=== PATIENT | male | born 1945 | race Caucasian/White ===

== ENCOUNTER 2023-12-13 09:49 | Inpatient (IN) | payer MEDICAID, SELFPAY ==
[2023-12-13] VITALS (7 sets, daily range): BP systolic 104–148; BP diastolic 41–76; PULSE 66–120; RESP 15–18; TEMP 36.5–37.3; O2SAT 84–100; BMI 30.9; BMI 33.3
--- NOTE | 2023-12-13 10:08 | EKG12_ITS ---
Test Reason : Blood Pressure : / mmHG Vent. Rate : 073 BPM Atrial Rate : 073 BPM P-R Int : 190 ms QRS Dur : 138 ms QT Int : 378 ms P-R-T Axes : 061 025 036 degrees QTc Int : 416 ms Sinus rhythm with Premature atrial complexes Right bundle branch block Abnormal ECG Confirmed by ABNER GROVER, KACEY ([id number]), design editor CANDIS CHEN ([id number]) on 12/14/2023 12:58:17 PM Referred By: Confirmed By:KACEY LEVINE MD
--- NOTE | 2023-12-13 10:12 | ED.RN ---
NO OLD EKGS
[2023-12-13 10:25] LABS: Absolute Lymphocyte Count 1.63 X10^3/uL (0.83-4.51); Absolute Neutrophil Count 13.9 X10^3/uL (2.0-7.7); Basophil# 0.13 X10^3/uL; Basophil% 0.7 % (0-1); Differential Indicated SCAN CRITERIA MET; Eosinophil# 0.05 X10^3/uL; Eosinophils% 0.3 % (0-5); Hematocrit 41.9 % (40-54); Hemoglobin 13.1 g/dL (13.0-16.5); Lymphocyte # 1.63 X10^3/ul (0.83-4.51); Lymphocyte % 8.8 % (19-41); Mean Corp Hgb Conc 31.3 g/dL (32-36); Mean Corpuscular Hgb 29.1 pg (27.0-32.0); Mean Corpuscular Volume 93.1 fL (80-94); Mean Platelet Vol. 10.1 fl (6.2-12.0); Monocyte# 2.22 X10^3/uL; Monocyte% 11.9 % (0-10); NRBC Flagged by Analyzer 0 % (0-5); Neutrophil # 13.93 X10^3/uL (2.7-7.7); POSITIVE DIFFERENTIAL YES; Platelet Count 401 K/mm3 (150-450); RBC Distribution Width CV 13.9 % (11.6-14.6); RBC Distribution Width SD 47.7 fl (35.1-43.9); White Blood Count 18.6 K/mm3 (4.4-11.0)
--- NOTE | 2023-12-13 10:25 | RAD_ITS ---
STUDY: X-RAY CHEST REASON FOR EXAM: Male, 78 years old. AMS TECHNIQUE: Single AP portable view of the chest. COMPARISON: None. FINDINGS: EKG electrodes are seen. Increased markings at the left lung base suggesting a left basilar infiltration and/or atelectasis. There is no demonstrated pleural abnormality. Normal size heart. Normal mediastinum and vane. Normal visualized pulmonary arteries. There is atherosclerotic calcification of the aortic arch with tortuosity. There are diffuse degenerative changes of the visualized thoracic spine. Normal visualized ribs, clavicles, and shoulders. There is no demonstrated abnormality of the visualized soft tissue structures of the upper abdomen. RAD/Chest 1 View (Portable) IMPRESSION: Left basilar infiltration and/or atelectasis. Electronically Signed: Mateo Pink MD at 10:39 EDT ,
--- NOTE | 2023-12-13 10:29 | EX.ED.DYSGE1 ---
HPI History of Present Illness Chief Complaint: Alt LOC Informant: patient, EMS and SNF Narrative Narrative: Patient is a 78-year-old male with extensive past medical history including schizophrenia, hypertension, chronic pain (on 30 mg morphine sulfate twice daily), insulin-dependent diabetes mellitus (on insulin glargine 20 units twice daily), dysphagia, prior stroke COPD, diastolic heart failure, chronic anticoagulation on Eliquis and anxiety presenting for altered mental status and decreased responsiveness. Patient was at [facility] he was supposed to have cataract surgery today. He states he not had anything to eat and 24 hours. He is a resident of [facility]. While he was there he had an episode of decreased responsiveness but no loss of consciousness. No report of any fall or trauma. EMS initially checked his blood sugar and it was 50. Was given oral glucose on recheck was 74. Patient denies any specific complaints and states he does not feel good and is hungry. ER nurse spoke with nursing staff at [facility]. They state that he received his morning 1 mg Ativan as well as 30 mg morphine sulfate as well as his a.m. Lantus. He refuses other medications because he could not have it with applesauce. They note that he has been more irritable over the past few days but no other acute complaints. [facility] Medical History (Updated 12/13/23 @ 17:[address] Anne Ellsworth, ) Dysphagia Schizophrenia HTN (hypertension) CHF (congestive heart failure) Hyperlipidemia Anemia Hypothyroidism Muscle weakness (generalized) Type 2 diabetes mellitus COPD (chronic obstructive pulmonary disease) Home Medications ?Medication ?Instructions ?Recorded ?Last Taken ?Type acetaminophen 325 mg tablet 650 mg PO Q8H PRN pain 12/13/23 Unknown History acetic acid 0.25 % irrigation 30 ml irrigation QPM 12/13/23 Unknown History solution apixaban 5 mg tablet (Eliquis) 5 mg PO BID blood thinner 12/13/23 Unknown History atorvastatin 20 mg tablet 20 mg PO QHS cad 12/13/23 Unknown History bisacodyl 10 mg rectal suppository 10 mg [place] DAILY PRN constipation 12/13/23 Unknown History (Dulcolax (bisacodyl)) bisacodyl 5 mg tablet,delayed 5 mg PO DAILY PRN constipation 12/13/23 Unknown History release (Dulcolax (bisacodyl)) cholecalciferol (vitamin D3) 125 125 mcg PO MO suppliment 12/13/23 Unknown History mcg (5,000 unit) capsule cyanocobalamin (vitamin B-12) 500 500 mcg PO QPM suppliment 12/13/23 Unknown History mcg tablet (B-12 DOTS) divalproex 500 mg tablet,delayed 500 mg PO TID scitzophrenia 12/13/23 Unknown History release duloxetine 60 mg capsule,delayed 60 mg PO DAILY depression 12/13/23 Unknown History release folic acid 1 mg tablet 1 mg PO DAILY suppliment 12/13/23 Unknown History furosemide 20 mg tablet 20 mg PO DAILY diuretic 12/13/23 Unknown History furosemide 40 mg tablet 40 mg PO DAILY diuretic 12/13/23 Unknown History gabapentin 600 mg tablet 600 mg PO TID nerve pain 12/13/23 Unknown History glucagon 1 mg solution for 1 mg subcut DAILY 12/13/23 Unknown History injection (GlucaGen HypoKit) haloperidol 2 mg tablet 2 mg PO BID scitzophrenia 12/13/23 Unknown History insulin glargine 100 unit/mL (3 20 unit subcut BID diabetes 12/13/23 Unknown History mL) subcutaneous pen (Basaglar KwikPen U-100 Insulin) insulin lispro 100 unit/mL 1 sliding scale dose subcut TID 12/13/23 Unknown History subcutaneous pen (Humalog KwikPen diabetes (U-100) Insulin) ketorolac 0.5 % eye drops 1 drp EACH EYE 4X/DAY RIGHT EYE 12/13/23 Unknown History SURGERY levothyroxine 50 mcg tablet 50 mcg PO DAILY thyroid 12/13/23 Unknown History lidocaine HCl 4 % topical cream 1 applic topical DAILY right knee 12/13/23 Unknown History (Aspercreme (lidocaine HCl)) pain lisinopril 5 mg tablet 5 mg PO DAILY bp 12/13/23 Unknown History loperamide 2 mg tablet 4 mg PO DAILY PRN loose stool 12/13/23 Unknown History lorazepam 0.5 mg tablet 0.5 mg PO 1700 anxiety 12/13/23 Unknown History lorazepam 1 mg tablet 1 mg PO TID anxiety 12/13/23 Unknown History magnesium hydroxide 400 mg/5 mL 30 ml PO DAILY PRN constipation 12/13/23 Unknown History oral suspension (Milk of Magnesia) melatonin 5 mg tablet 5 mg PO QHS sleep 12/13/23 Unknown History morphine 30 mg tablet,extended 30 mg PO BID pain 12/13/23 Unknown History release ofloxacin 0.3 % eye drops 1 drp ophthalmic (eye) 4X/DAY 12/13/23 Unknown History RIGHT EYE SURGERY polyethylene glycol 3350 17 17 g PO DAILY constipation 12/13/23 Unknown History gram/dose oral powder (ClearLax) potassium chloride 20 mEq 20 meq PO DAILY suppliment 12/13/23 Unknown History tablet,extended release sennosides 8.6 mg-docusate sodium 1 tab-cap PO BID 12/13/23 Unknown History 50 mg capsule (Senna Plus) venlafaxine 150 mg 150 mg PO DAILY depression 12/13/23 Unknown History capsule,extended release 24 hr venlafaxine 37.5 mg 37.5 mg PO DAILY depression 12/13/23 Unknown History capsule,extended release 24 hr (Effexor XR) vit M-smpnjetm-ukihrfvrkki lotion 1 applic topical BID PRN dry skin 12/13/23 Unknown History (Cetaphil Moisturizing lotion) Allergy/AdvReac Type Severity Reaction Status Date / Time No Known Allergies Allergy Verified 12/13/23 09:51 Social History (Updated 12/13/23 @ 13:04 by Teresa Hall) housing: prison Smoking Status: Unknown if ever smoked ROS ROS ED Review of Systems ROS Unobtainable: due to mental status Constitutional Constitutional ED: Denies fever(s) Cardiovascular Cardiovascular: Denies chest pain Respiratory/Chest Respiratory/Chest: Denies cough Gastrointestinal Gastrointestinal: Denies abdominal pain or vomiting Neurologic Neurologic: Reports weakness Hematologic/Lymphatic Hematologic/Lymphatic: Reports easy bleeding, easy bruising and other Details: On Eliquis EXAM Physical Exam Const Vital Signs: 12/13/23 09:51 12/13/23 09:51 12/13/23 11:49 Temperature 97.8 F 97.8 F Temperature Source Oral Temporal Pulse Rate 88 120 H Respiratory Rate 16 18 Blood Pressure 132/64 H 132/76 H Blood Pressure Mean 86 94 Pulse Ox 84 94 100 Oxygen Delivery Method Room Air Nasal Cannula Nasal Cannula Oxygen Flow Rate (L/min) 4 2 12/13/23 11:54 Temperature 97.7 F L Temperature Source Temporal Pulse Rate 73 Respiratory Rate 16 Blood Pressure 104/48 L Blood Pressure Mean 66 Pulse Ox 99 Oxygen Delivery Method Nasal Cannula Oxygen Flow Rate (L/min) 4 Positive well nourished and well developed General Appearance ED: well developed and NAD HEENT Reports dry mucous membranes Mouth ED: Yes dry mucous membranes Mouth: dry mucous membranes Eyes PERRL and EOMs intact bilaterally Neck no lymphadenopathy and supple Neck Narrative: No meningeal signs Chest Wall inspection of chest normal Resp normal respiratory effort and clear to auscultation bilaterally Cardio regular rate, regular rhythm and no murmurs GI normal to inspection, nondistended, normoactive bowel sounds and non-tender Extremity normal to inspection Neuro Neuro Narrative: Somnolent, answers questions with brief one-word responses or head nods Sensorium / Orientation: alert Motor Exam: general weakness Psych mental status grossly normal Skin no rashes or lesions noted and no wounds MDM MDM MDM Narrative Medical decision making narrative: Patient is evaluated for decreased responsiveness. Was hypoxic upon arrival and placed on 4 L of nasal cannula. Was hypoglycemic. Is able to drink so was given orange juice. Workup for cause of altered mental status and hypoglycemia including infection, ACS and electrolyte abnormality is performed. Patient is given IV fluids in the emergency room. Blood sugar is coming up slightly so hold off on dextrose infusion at this time. Patient has a significantly elevated white blood cell count of 18.6 with signs of a left shift. Will add on blood cultures and lactate as well. Source appears to be urine. Patient started IV Rocephin. Chest x-ray viewed by myself as well as radiology shows a questionable left basilar infiltrate and/or atelectasis however I suspect that is more atelectasis. Case is discussed with admitting physician, Dr. Bejarano. He is admitted to hospital for further treatment. Lab Data Labs: Laboratory Results - last 24 hr 12/13/23 12/13/23 12/13/23 09:55 10:10 10:14 WBC 18.6 H RBC 4.50 L Hgb 13.1 Hct 41.9 MCV 93.1 MCH 29.1 MCHC 31.3 L RDW Std Deviation 47.7 H RDW Coeff of Eric 13.9 Plt Count 401 MPV 10.1 Immature Gran % (Auto) 3.300 H Neut % (Auto) 75.0 H Lymph % (Auto) 8.8 L [place] % (Auto) 11.9 H Eos % (Auto) 0.3 Baso % (Auto) 0.7 Absolute Neuts (auto) 13.9 H Absolute Lymphs (auto) 1.63 Nucleated RBC % 0 Differential Comment Diff Path Review May foll Sodium 135 L Potassium 3.9 Chloride 97 L Carbon Dioxide 31.0 Anion Gap 7 BUN 16 Creatinine 1.15 Estim Creat Clear Calc 65.89 Est GFR (MDRD) Af Amer 79 Est GFR (MDRD) Non-Af 65 BUN/Creatinine Ratio 13.9 Glucose 67 L Lactic Acid Calcium 9.4 Total Bilirubin 0.40 AST 82 H ALT 18 Alkaline Phosphatase 73 Troponin I High Sens 13 B-Natriuretic Peptide 55.1 Total Protein 7.6 Albumin 2.5 L Globulin 5.1 H Albumin/Globulin Ratio 0.5 L Urine Color Urine Clarity Urine pH Ur Specific [place] Urine Protein Urine Glucose (UA) Urine Ketones Urine Occult Blood Urine Nitrite Urine Bilirubin Urine Urobilinogen Ur Leukocyte Esterase Urine RBC Urine WBC Ur Squamous Epith Cells Amorphous Sediment Urine Bacteria Urine Mucus Valproic Acid 57 POC Glucose 48 L 64 L 12/13/23 12/13/23 12/13/23 10:27 10:40 11:33 WBC RBC Hgb Hct MCV MCH MCHC RDW Std Deviation RDW Coeff of Eric Plt Count MPV Immature Gran % (Auto) Neut % (Auto) Lymph % (Auto) [place] % (Auto) Eos % (Auto) Baso % (Auto) Absolute Neuts (auto) Absolute Lymphs (auto) Nucleated RBC % Differential Comment Diff Path Review Sodium Potassium Chloride Carbon Dioxide Anion Gap BUN Creatinine Estim Creat Clear Calc Est GFR (MDRD) Af Amer Est GFR (MDRD) Non-Af BUN/Creatinine Ratio Glucose Lactic Acid 0.9 Calcium Total Bilirubin AST ALT Alkaline Phosphatase Troponin I High Sens B-Natriuretic Peptide Total Protein Albumin Globulin Albumin/Globulin Ratio Urine Color Yellow Urine Clarity Cloudy Urine pH 6.0 Ur Specific [place] 1.015 Urine Protein 100 H Urine Glucose (UA) Normal Urine Ketones 15 H Urine Occult Blood 50 H Urine Nitrite Positive H Urine Bilirubin Negative Urine Urobilinogen 4 H Ur Leukocyte Esterase 500 H Urine RBC 0-5 SEEN Urine WBC 50-100 SEEN Ur Squamous Epith Cells 0-5 SEEN Amorphous Sediment 3+ Urine Bacteria 2+ Urine Mucus 0 SEEN Valproic Acid POC Glucose 139 H 12/13/23 11:57 WBC RBC Hgb Hct MCV MCH MCHC RDW Std Deviation RDW Coeff of Eric Plt Count MPV Immature Gran % (Auto) Neut % (Auto) Lymph % (Auto) [place] % (Auto) Eos % (Auto) Baso % (Auto) Absolute Neuts (auto) Absolute Lymphs (auto) Nucleated RBC % Differential Comment Diff Path Review Sodium Potassium Chloride Carbon Dioxide Anion Gap BUN Creatinine Estim Creat Clear Calc Est GFR (MDRD) Af Amer Est GFR (MDRD) Non-Af BUN/Creatinine Ratio Glucose Lactic Acid Calcium Total Bilirubin AST ALT Alkaline Phosphatase Troponin I High Sens B-Natriuretic Peptide Total Protein Albumin Globulin Albumin/Globulin Ratio Urine Color Urine Clarity Urine pH Ur Specific [place] Urine Protein Urine Glucose (UA) Urine Ketones Urine Occult Blood Urine Nitrite Urine Bilirubin Urine Urobilinogen Ur Leukocyte Esterase Urine RBC Urine WBC Ur Squamous Epith Cells Amorphous Sediment Urine Bacteria Urine Mucus Valproic Acid POC Glucose 182 H Radiography Chest X-Ray - ED: 1 View, Read by ED Physician, Read by Radiologist and - (Left basilar infiltrate versus atelectasis) Diagnostic Testing: Clinical Impression(s) from Imaging Studies Chest X-Ray 12/13/23 10:25 IMPRESSION: Left basilar infiltration and/or atelectasis. Electronically Signed: Mateo Pink MD at 10:39 EDT , Rhythm Strip Rhythm Strip: Sinus Rhythm Rate: 73 Ectopy: PAC(s) EKG Initial EKG: Attestation: I personally reviewed and interpreted this EKG as follows: Interpretation: Sinus Rhythm Comments: Normal sinus rhythm at a rate of 73 bpm with PACs Right bundle branch block Normal ST segments No prior EKG available for comparison Discharge Plan Dx/Rx/DC Orders Clinical Impression: UTI (urinary tract infection), Hypoglycemia, Encephalopathy acute Disposition Disposition: Acute Care Hospital [facility] Discharge Date/Time: 12/13/23 12:41
[2023-12-13] MEDS: 0.9% Normal Saline (500mL Bag) 500 ML 1000 ML IV (10:38)
[2023-12-13 10:39] LABS: Mucous, Urine 0 SEEN /hpf (<or=2+)
[2023-12-13 10:40] LABS: Color, Urine Yellow (Yellow); Glucose, Dipstick Normal (Normal); Ketone-Dipstick 15 mg/dl (Negative); Leukocyte Esterase-Dipstick 500 /ul (Negative); Nitrite-Dipstick Positive (Negative); Occult Blood-Urine 50 /ul (Negative); Protein-Dipstick 100 mg/dl (Negative); Specific Gravity, Urine 1.015 (1.002-1.030); Urine Bilirubin Dipstick Negative (Negative); Urine Clarity Cloudy (Clear); Urine Urobilinogen 4 mg/dl (Normal)
[2023-12-13 10:40] LABS: Valproic Acid (Depakene) Level 57 ug/mL (50-100)
[2023-12-13 10:47] LABS: ALB/GLOB Ratio 0.5 RATIO (0.9-2.4); AST(SGOT) 82 U/L (15-37); Alanine Aminotransfer ALT/SGPT 18 U/L (16-61); Albumin, Serum 2.5 g/dL (3.2-5.0); Alkaline Phosphatase 73 U/L (45-117); Anion Gap 7 (5-15); BUN 16 mg/dL (7-18); BUN/Creat Ratio 13.9 RATIO (10-20); Calcium,Total 9.4 mg/dL (8.5-10.1); Chloride 97 mmol/L (98-107); Creatinine, Serum 1.15 mg/dL (0.70-1.30); EST Glomerular Filtration Rate 65 mL/min (>60); Est Glom Filt Rate - Afr Amer 79 mL/min (>60); Estimated Creatinine Clearance 65.89 ml/min; Globulin 5.1 g/dL (2.2-4.2); Glucose 67 mg/dL (74-106); Potassium 3.9 mmol/L (3.5-5.1); Protein, Total 7.6 g/dL (6.4-8.2); Sodium Level 135 mmol/L (136-145); Troponin-I HS (w/2H Reflex) 13 pg/mL (3.0-78.0)
[2023-12-13 10:52] LABS: Amorphous Sediment 3+; Bacteria 2+ /hpf (None Seen); Red Blood Cells-Urine 0-5 SEEN /hpf (0-5); Squamous Epithelial Cells - UA 0-5 SEEN /hpf (0-5); White Blood Cells 50-100 SEEN /hpf (0-5)
[2023-12-13 10:56] LABS: Bedside Glucose 64 mg/dL (74-106)
[2023-12-13 10:56] LABS: Bedside Glucose 48 mg/dL (74-106)
[2023-12-13 11:01] LABS: BNP,B-Type NATRIURETIC PEPTIDE 55.1 pg/mL (0-100)
[2023-12-13 11:34] LABS: Lactic Acid 0.9 mmol/L (0.4-1.9)
[2023-12-13] MEDS: Ceftriaxone 1 GM/50 ML BAG IV (11:35)
[2023-12-13 11:51] LABS: Bedside Glucose 139 mg/dL (74-106)
[2023-12-13 12:17] LABS: Bedside Glucose 182 mg/dL (74-106)
[2023-12-13 12:18] LABS: Reflex Troponin-HS? (from REC) Y
--- NOTE | 2023-12-13 12:21 | PCM.HP.STD ---
HPI - General General Date of Admission: 12/13/23 Date of Service: 12/13/23 Chief Complaint: AMS HPI Narrative ALDO LOVE, is a 78 M with a history of schizophrenia, COPD, anticoagulation on Eliquis, hypertension, diabetes mellitus, chronic pain, hypothyroidism who presented to [facility] ED 12/13/2023 due to decreased responsiveness [facility] where he presented for cataract surgery. In the ED he was found to have an elevated white blood cell count, glucose of 67 and UA suggestive of UTI it was suspected that patient's current presentation secondary to UTI, hospitalist contacted for admission. Patient evaluated at bedside as he was attempting to eat a sandwich, patient reluctant to engage and when asked if he had any pain he reported having bedsores but with further questions he said to stop with the damn questions and refused to answer any further questions and no family at bedside so history obtained from chart review. It appears he had not eaten very well for 24 hours and is currently a resident of [facility] nursing [facility], there had some decreased responsiveness but no loss of consciousness and had no falls or trauma. Blood sugar was initially 50 and he was given oral glucose with recheck of 74. Patient is on Ativan and morphine and received both of these as well as his Lantus this morning but refused other medications because he did not have them with applesauce. Has been more irritable over the past several days but per chart review has not had any other specific complaints [facility] Medical History (Updated 12/13/23 @ 12:[address] Wanda Bejarano MD) Anemia CHF (congestive heart failure) COPD (chronic obstructive pulmonary disease) Dysphagia HTN (hypertension) Hyperlipidemia Hypothyroidism Muscle weakness (generalized) Schizophrenia Type 2 diabetes mellitus Home Medications ?Medication ?Instructions ?Recorded ?Last Taken ?Type acetaminophen 325 mg tablet 650 mg PO Q8H PRN pain 12/13/23 Unknown History acetic acid 0.25 % irrigation 30 ml irrigation QPM 12/13/23 Unknown History solution apixaban 5 mg tablet (Eliquis) 5 mg PO BID 12/13/23 Unknown History bisacodyl 10 mg rectal suppository 10 mg MS DAILY PRN constipation 12/13/23 Unknown History (Dulcolax (bisacodyl)) bisacodyl 5 mg tablet,delayed 5 mg PO DAILY 12/13/23 Unknown History release (Dulcolax (bisacodyl)) cholecalciferol (vitamin D3) 125 125 mcg PO MO 12/13/23 Unknown History mcg (5,000 unit) capsule cyanocobalamin (vitamin B-12) 500 500 mcg PO QPM 12/13/23 Unknown History mcg tablet (B-12 DOTS) divalproex 500 mg tablet,delayed 500 mg PO TID 12/13/23 Unknown History release duloxetine 60 mg capsule,delayed 60 mg PO DAILY 12/13/23 Unknown History release folic acid 1 mg tablet 1 mg PO DAILY 12/13/23 Unknown History furosemide 20 mg tablet 20 mg PO DAILY 12/13/23 Unknown History furosemide 40 mg tablet 40 mg PO DAILY 12/13/23 Unknown History gabapentin 600 mg tablet 600 mg PO TID 12/13/23 Unknown History glucagon 1 mg solution for 1 mg subcut DAILY 12/13/23 Unknown History injection (GlucaGen HypoKit) haloperidol 2 mg tablet 2 mg PO BID 12/13/23 Unknown History insulin glargine 100 unit/mL (3 20 unit subcut BID 12/13/23 Unknown History mL) subcutaneous pen (Basaglar KwikPen U-100 Insulin) insulin lispro 100 unit/mL 1 sliding scale dose subcut TID 12/13/23 Unknown History subcutaneous pen (Humalog KwikPen (U-100) Insulin) ketorolac 0.5 % eye drops 1 drp EACH EYE 4X/DAY RIGHT EYE 12/13/23 Unknown History SURGERY levothyroxine 50 mcg tablet 50 mcg PO DAILY 12/13/23 Unknown History lidocaine HCl 4 % topical cream 1 applic topical DAILY right knee 12/13/23 Unknown History (Aspercreme (lidocaine HCl)) pain lisinopril 5 mg tablet 5 mg PO DAILY 12/13/23 Unknown History loperamide 2 mg tablet 4 mg PO DAILY PRN loose stool 12/13/23 Unknown History lorazepam 1 mg tablet 1 mg PO 4X/DAY PRN anxiety 12/13/23 Unknown History magnesium hydroxide 400 mg/5 mL 30 ml PO DAILY PRN constipation 12/13/23 Unknown History oral suspension (Milk of Magnesia) melatonin 5 mg tablet 5 mg PO QHS PRN sleep 12/13/23 Unknown History morphine 30 mg tablet,extended 30 mg PO BID PRN pain 12/13/23 Unknown History release ofloxacin 0.3 % eye drops 1 drp ophthalmic (eye) 4X/DAY 12/13/23 Unknown History RIGHT EYE SURGERY polyethylene glycol 3350 17 17 g PO DAILY PRN constipation 12/13/23 Unknown History gram/dose oral powder (ClearLax) potassium chloride 20 mEq 20 meq PO BID 12/13/23 Unknown History tablet,extended release sennosides 8.6 mg-docusate sodium 1 tab-cap PO BID 12/13/23 Unknown History 50 mg capsule (Senna Plus) venlafaxine 150 mg 150 mg PO DAILY 12/13/23 Unknown History capsule,extended release 24 hr venlafaxine 37.5 mg 37.5 mg PO DAILY 12/13/23 Unknown History capsule,extended release 24 hr (Effexor XR) vit M-mbsgxduc-zontjbwpocd lotion 1 applic topical BID PRN dry skin 12/13/23 Unknown History (Cetaphil Moisturizing lotion) Allergy/AdvReac Type Severity Reaction Status Date / Time No Known Allergies Allergy Verified 12/13/23 09:51 Social History Smoking Status: Unknown if ever smoked ROS ROS Narrative Unable to obtain secondary to patient cooperation Vital Signs Vital Signs Vital Signs: 12/13/23 09:51 12/13/23 09:51 12/13/23 11:49 Temperature 97.8 F 97.8 F Temperature Source Oral Temporal Pulse Rate 88 120 H Respiratory Rate 16 18 Blood Pressure 132/64 H 132/76 H Blood Pressure Mean 86 94 Pulse Ox 84 94 100 Oxygen Delivery Method Room Air Nasal Cannula Nasal Cannula Oxygen Flow Rate (L/min) 4 2 12/13/23 11:54 Temperature 97.7 F L Temperature Source Temporal Pulse Rate 73 Respiratory Rate 16 Blood Pressure 104/48 L Blood Pressure Mean 66 Pulse Ox 99 Oxygen Delivery Method Nasal Cannula Oxygen Flow Rate (L/min) 4 Weight Weight: 103.6 kg Body Mass Index (BMI) 30.9 Physical Exam Narrative General: Appears tired but is awake, patient would not answer questions with difficulty to assess orientation HEENT: normocephalic Eyes: Anicteric, normal conjunctiva, extraocular movements grossly intact Neck: Supple Respiratory: Transmitted upper airway sounds, normal respiratory effort Cardiovascular: Regular rate GI: Soft, nontender, nondistended Extremities: No edema Musculoskeletal: Moving all extremities Neuro: No overt focal neurological deficits Skin: No rashes appreciated Psych: Uncooperative Results Lab / Micro Data 12/13/23 10:10 12/13/23 10:10 Labs: Laboratory Results - last 24 hr 12/13/23 09:55: POC Glucose 48 L 12/13/23 10:10: WBC 18.6 H, RBC 4.50 L, Hgb 13.1, Hct 41.9, MCV 93.1, MCH 29.1, MCHC 31.3 L, RDW Std Deviation 47.7 H, RDW Coeff of Eric 13.9, Plt Count 401, MPV 10.1, Immature Gran % (Auto) 3.300 H, Neut % (Auto) 75.0 H, Lymph % (Auto) 8.8 L, [place] % (Auto) 11.9 H, Eos % (Auto) 0.3, Baso % (Auto) 0.7, Absolute Neuts (auto) 13.9 H, Absolute Lymphs (auto) 1.63, Nucleated RBC % 0, Differential Comment , Diff Path Review September, Sodium 135 L, Potassium 3.9, Chloride 97 L, Carbon Dioxide 31.0, Anion Gap 7, BUN 16, Creatinine 1.15, Estim Creat Clear Calc 65.89, Est GFR (MDRD) Af Amer 79, Est GFR (MDRD) Non-Af 65, BUN/Creatinine Ratio 13.9, Glucose 67 L, Calcium 9.4, Total Bilirubin 0.40, AST 82 H, ALT 18, Alkaline Phosphatase 73, Troponin I High Sens 13, B-Natriuretic Peptide 55.1, Total Protein 7.6, Albumin 2.5 L, Globulin 5.1 H, Albumin/Globulin Ratio 0.5 L, Valproic Acid 57 12/13/23 10:14: POC Glucose 64 L 12/13/23 10:27: Urine Color Yellow, Urine Clarity Cloudy, Urine pH 6.0, Ur Specific [place] 1.015, Urine Protein 100 H, Urine Glucose (UA) Normal, Urine Ketones 15 H, Urine Occult Blood 50 H, Urine Nitrite Positive H, Urine Bilirubin Negative, Urine Urobilinogen 4 H, Ur Leukocyte Esterase 500 H, Urine RBC 0-5 SEEN, Urine WBC 50-100 SEEN, Ur Squamous Epith Cells 0-5 SEEN, Amorphous Sediment 3+, Urine Bacteria 2+, Urine Mucus 0 SEEN 12/13/23 10:40: Lactic Acid 0.9 12/13/23 11:33: POC Glucose 139 H 12/13/23 11:57: POC Glucose 182 H Rhythm Strip Rhythm Strip: Sinus Rhythm Rate: 73 Ectopy: PAC(s) Imaging Radiology Impression Chest X-Ray 12/13/23 10:25 IMPRESSION: Left basilar infiltration and/or atelectasis. Electronically Signed: Mateo Pink MD at 10:39 EDT , Assessment & Plan Assessment/Plan (1) UTI (urinary tract infection): (2) HTN (hypertension): (3) COPD (chronic obstructive pulmonary disease): (4) CHF (congestive heart failure): (5) Hypothyroidism: (6) Schizophrenia: (7) Type 2 diabetes mellitus: PLAN: Plan # Decreased level of consciousness, suspect metabolic encephalopathy -Elevated white blood cell count and UA is concerning for UTI, also reports some chronic wounds on his butt but unclear if the have been any changes, he reported these were chronic but refused to answer any further questions -Suspect decreased level consciousness is due to infection -Urine and blood cultures -Consult wound care for buttock wounds -IV antibiotics -Depakote level within normal limits -Will check ammonia -Will continue home Ativan and morphine but at lower doses until patient more awake and alert -Will check TSH given patient's hypothyroidism #Suspect UTI -Panculture -IV antibiotics # History of chronic heart failure unclear subtype -Patient on diuretics at home, will hold at this time -Daily weights, I's and O's -Holding diuretics given infection and low blood pressure -No echo in our system, unclear if reduced or preserved HF but it is chronic and does not seem to be in exacerbation #Type 2 diabetes mellitus with hypoglycemic episode -Glucose originally in the 50s and improved with oral glucose -Glucose checks and sliding scale insulin -Decrease long-acting insulin Chronic problems: -Schizophrenia: Continue Haldol, Depakote and duloxetine, will hold Effexor given potential for serotonin syndrome if administered with duloxetine -Hypothyroidism: Continue levothyroxine -Chronic anticoagulation: Will need to verify reason for patient's anticoagulation -Hypertension: Hold lisinopril given blood pressure low -Hx COPD: -Per chart review, Will need to clarify if on home O2 #DVT ppx: Kraig Bejarano MD Time spent in the patient's overall evaluation,decision-making process, review of diagnostic data, adjustment of management, discussion with other providers, nursing nursing and ancillary staff involved in patient's care documentation, 57 minutes Charges/Coding Visit Charges Inpatient E&M: 04390 Init Hosp L2
--- NOTE | 2023-12-13 12:33 | ED.RN ---
YUNG WOOD UPDATED ON PT. GETTING ADMITTED.
[2023-12-13 12:54] LABS: Troponin-I HS 11 pg/mL (3.0-78.0)
[2023-12-13] MEDS: Piperacil/Tazobactam 4.5 GM in 0.9% Normal Saline (100mL MB+) 100 ML IV (13:38)
--- NOTE | 2023-12-13 14:37 | WOUNDNOTE ---
wound photo: bilateral buttocks
[2023-12-13 15:07] LABS: Magnesium 2.4 mg/dL (1.6-2.6); T4 Free Direct 0.81 ng/dL (0.76-1.46); Thyroid Stim Hormone (TSH) 1.08 uIU/mL (0.358-3.74)
[2023-12-13] MEDS: Divalproex Sodium 250 MG Tablet 500 MG PO ×2 (15:42→21:46)
[2023-12-13 16:18] LABS: Bedside Glucose 76 mg/dL (74-106)
[2023-12-13] MEDS: Glucerna Shake 120 ML LIQUID PO (17:19)
[2023-12-13 17:53] LABS: Bedside Glucose 86 mg/dL (74-106)
[2023-12-13] MEDS: Haloperidol 1 MG Tablet 2 MG PO (21:46)
[2023-12-13] MEDS: APIXABAN 5 MG TABLET PO (21:46)
[2023-12-13] MEDS: Atorvastatin Calcium 20 MG Tablet PO (21:49)
[2023-12-13] MEDS: Gabapentin 600 MG Tablet PO (21:49)
[2023-12-13] MEDS: morphine SR 15 MG Tablet PO (21:49)
[2023-12-13] MEDS: Piperacil/Tazobactam 3.375 GM in 0.9% Normal Saline (50mL MB+) 50 ML IV (21:49)
[2023-12-13] MEDS: Insulin Lispro 100 UNIT/ML INSULN.PEN SC (22:11)
[2023-12-14] VITALS (7 sets, daily range): BP systolic 94–144; BP diastolic 46–64; PULSE 41–64; RESP 12–18; TEMP 36.3–36.9; O2SAT 93–100; BMI 33.3
[2023-12-14] MEDS: Levothyroxine 50 MCG Tablet PO (06:19)
[2023-12-14] MEDS: Divalproex Sodium 250 MG Tablet 500 MG PO ×2 (06:19→14:41)
[2023-12-14] MEDS: Gabapentin 600 MG Tablet PO ×3 (06:19→23:32)
[2023-12-14] MEDS: Piperacil/Tazobactam 3.375 GM in 0.9% Normal Saline (50mL MB+) 50 ML IV ×3 (06:20→23:25)
[2023-12-14 06:56] LABS: Bedside Glucose 184 mg/dL (74-106)
[2023-12-14 07:15] LABS: Bedside Glucose 100 mg/dL (74-106)
[2023-12-14 07:16] LABS: Absolute Lymphocyte Count 2.09 X10^3/uL (0.83-4.51); Absolute Neutrophil Count 8.6 X10^3/uL (2.0-7.7); Basophil# 0.07 X10^3/uL; Basophil% 0.5 % (0-1); Eosinophil# 0.14 X10^3/uL; Hematocrit 35.2 % (40-54); Hemoglobin 11.1 g/dL (13.0-16.5); Lymphocyte # 2.09 X10^3/ul (0.83-4.51); Lymphocyte % 15.6 % (19-41); Mean Corp Hgb Conc 31.5 g/dL (32-36); Mean Corpuscular Hgb 29.7 pg (27.0-32.0); Mean Corpuscular Volume 94.1 fL (80-94); Mean Platelet Vol. 9.7 fl (6.2-12.0); Monocyte# 1.94 X10^3/uL; Monocyte% 14.4 % (0-10); NRBC Flagged by Analyzer 0 % (0-5); Neutrophil # 8.64 X10^3/uL (2.7-7.7); Neutrophil % 64.4 % (47-70); POSITIVE DIFFERENTIAL YES; Platelet Count 336 K/mm3 (150-450); RBC Distribution Width CV 13.9 % (11.6-14.6); RBC Distribution Width SD 47.5 fl (35.1-43.9); Red Blood Count 3.74 M/mm3 (4.6-6.2); White Blood Count 13.4 K/mm3 (4.4-11.0)
[2023-12-14 07:20] LABS: Differential Indicated SCAN CRITERIA MET
[2023-12-14 07:34] LABS: ALB/GLOB Ratio 0.5 RATIO (0.9-2.4); AST(SGOT) 50 U/L (15-37); Alanine Aminotransfer ALT/SGPT 12 U/L (16-61); Alkaline Phosphatase 53 U/L (45-117); Anion Gap 4 (5-15); BUN 14 mg/dL (7-18); BUN/Creat Ratio 14.2 RATIO (10-20); Calcium,Total 8.8 mg/dL (8.5-10.1); Chloride 100 mmol/L (98-107); Creatinine, Serum 0.99 mg/dL (0.70-1.30); EST Glomerular Filtration Rate 78 mL/min (>60); Est Glom Filt Rate - Afr Amer 94 mL/min (>60); Estimated Creatinine Clearance 73.29 ml/min; Globulin 4.3 g/dL (2.2-4.2); Glucose 133 mg/dL (74-106); Protein, Total 6.3 g/dL (6.4-8.2); Sodium Level 134 mmol/L (136-145)
[2023-12-14 07:43] LABS: Differential Comment SCANNED
--- NOTE | 2023-12-14 09:54 | CASEMGMT ---
Discharge Planning Updates sent to [facility] via [facility]. Noted that patient may return today. Radha Mallory DC Planning Asst.
[2023-12-14] MEDS: Haloperidol 1 MG Tablet 2 MG PO (10:00)
[2023-12-14] MEDS: Folic Acid 1 MG Tablet PO (10:00)
[2023-12-14] MEDS: morphine SR 15 MG Tablet PO (10:01)
[2023-12-14] MEDS: APIXABAN 5 MG TABLET PO ×2 (10:01→23:32)
[2023-12-14] MEDS: DULoxetine Hcl 60 MG Capsule PO (10:01)
[2023-12-14] MEDS: Menthol/Lanolin/Calamine/Znox 113 GM Tube 1 APPLIC TOPICAL ×2 (10:02→23:32)
[2023-12-14] MEDS: Glucerna Shake 120 ML LIQUID PO ×3 (10:03→23:32)
[2023-12-14] MEDS: Insulin Glargine-YFGN 100 UNIT/ML Pen 10 UNIT SC ×2 (10:05→23:36)
[2023-12-14] MEDS: LORazepam 1 MG Tablet PO ×2 (10:10→14:41)
[2023-12-14] MEDS: Insulin Lispro 100 UNIT/ML INSULN.PEN SC ×2 (12:10→16:37)
[2023-12-14 12:32] LABS: Bedside Glucose 192 mg/dL (74-106)
--- NOTE | 2023-12-14 12:34 | CASEMGMT ---
Addendum entered by Alissa Thompson 12/14/23 14:17: Patient asked for SW again. SW met with patient. Introduced self and role at [facility]. Patient asked SW where he is going at discharge. SW told patient he will likely return to [facility]. Patient asked SW if SW heard of [facility]. SW let patient know SW is not familiar with that facility. Patient told SW it is about 10 [place] north of the [facility]. SW told patient the 3 facilities that are north of [place] and around that mileage are [place], [facility], and [facility]. SW told patient if he is unhappy at [facility] he can let the Engineering Librarian there know he is unhappy and they can help him find a new facility. Patient said he did before, but then he let it go and stayed. SW let patient that he might be returning to [facility] today. Patient was in agreement with returning to [facility]. Alissa MELO Original Note: SW was notified patient is requesting to talk with SW. SW went to patient's room. Introduced self and role at [facility]. Patient told SW that SW came at a bad time as his medication is just starting to work. Patient asked if SW could come by later. SW said that SW can check back again later. Alissa MELO
--- NOTE | 2023-12-14 13:14 | CHAPLAIN ---
Type of Pastoral Visit _x__ Initial Visit ___ Follow-up Visit ___ On-call Visit ___ General Patient Visit ___ Spiritual Assessment ___ Family Conference ___ Bereavement ___ Rapid Response ___ Code Blue ___ Other (describe below) Pastoral Care Referral From _x__ Patient ___ Family ___ Nurse ___ Physician ___ Paver ___ Nurse Practitioner Adult ___ Other (describe below) Sacrament/Intervention _x__ Active listening ___ Anointing ___ Mandaeism ___ Bereavement ___ Communion ___ Connie exploration ___ ___ Life review _x__ Prayer ___ Reconciliation ___ Sacrament of Sick _x__ Supportive presence ___ Wedding ___ Other (describe below) Pastoral Comments patient is welcoming and asks questions; pt speaks of his living arrangement and the changes that came more recently with that; pt is concerned about going back or where I might go now; pt is given assurance that this will all be figured out before he leaves the hospital; pt is asked about any worries or concerns and pt recalls seeing scenes on TV that were disturbing and he is tearful about it; offered calm presence, assurances, listening to words with his emotion; pt is asked about his connie and he states that I am not very quaker but you can pray; time given to sit with pt and to give presence as pt appears to have very little support in his life per his statements of a niece that is my...
[2023-12-14 13:15] LABS: Pathologist Review Reviewed
[2023-12-14 13:17] LABS: Pathologist Review Reviewed
[2023-12-14] MEDS: Acetaminophen 325 MG Tablet 650 MG PO (14:50)
--- NOTE | 2023-12-14 15:48 | PCM.PN.HOSP ---
Reason for Visit Reason for Visit: Diagnoses Hypothyroidism, unspecified (12/13/23) Type 2 diabetes mellitus without complications (12/13/23) Schizophrenia, unspecified (12/13/23) Essential (primary) hypertension (12/13/23) Heart failure, unspecified (12/13/23) Chronic obstructive pulmonary disease, unspecified (12/13/23) Urinary tract infection, site not specified (12/13/23) Subjective Subjective Pt feels slightly better, upset that breakfast wasn't up yet Objective Data Objective Data Vital Signs: Vital Signs Temp Pulse Resp BP Pulse Ox O2 Del Method O2 Flow Rate 98.4 F 62 16 144/58 H 93 Room Air 2 12/14/23 09:51 12/14/23 09:51 12/14/23 09:51 12/14/23 09:51 12/14/23 09:51 12/14/23 15:28 12/14/23 04:49 Oxygen Flow Rate (L/min) 2 Oxygen Delivery Method Room Air Weight: 104.6 kg Body Mass Index (BMI) 33.3 Intake & Output: Intake and Output for Last 24 Hours 12/12/23 12/13/23 12/14/23 23:59 23:59 23:59 Intake Total 1130 / 1130 220 / 220 Output Total 450 / 650 200 / 200 Balance 680 / 480 20 / 20 Lab / Micro Data 12/14/23 06:55 12/14/23 06:55 Labs: Laboratory Results - last 24 hr 12/13/23 10:10: Diff Path Review Reviewed 12/13/23 15:47: POC Glucose 76 12/13/23 17:16: POC Glucose 86 12/13/23 21:46: POC Glucose 184 H 12/14/23 06:29: POC Glucose 100 12/14/23 06:55: WBC 13.4 H, RBC 3.74 L, Hgb 11.1 L, Hct 35.2 L, MCV 94.1 H, MCH 29.7, MCHC 31.5 L, RDW Std Deviation 47.5 H, RDW Coeff of Eric 13.9, Plt Count 336, MPV 9.7, Immature Gran % (Auto) 4.100 H, Neut % (Auto) 64.4, Lymph % (Auto) 15.6 L, [place] % (Auto) 14.4 H, Eos % (Auto) 1.0, Baso % (Auto) 0.5, Absolute Neuts (auto) 8.6 H, Absolute Lymphs (auto) 2.09, Nucleated RBC % 0, Differential Comment SCANNED, Diff Path Review Reviewed, Sodium 134 L, Potassium 4.0, Chloride 100, Carbon Dioxide 30.0, Anion Gap 4 L, BUN 14, Creatinine 0.99, Estim Creat Clear Calc 73.29, Est GFR (MDRD) Af Amer 94, Est GFR (MDRD) Non-Af 78, BUN/Creatinine Ratio 14.2, Glucose 133 H, Calcium 8.8, Magnesium 2.0, Total Bilirubin 0.30, AST 50 H, ALT 12 L, Alkaline Phosphatase 53, Total Protein 6.3 L, Albumin 2.0 L, Globulin 4.3 H, Albumin/Globulin Ratio 0.5 L 12/14/23 12:08: POC Glucose 192 H Micro: Microbiology 12/13/23 10:27 Urine Catheter - Winn Urine Culture - Preliminary GNR Poss Pseudomonas sp Rhythm Strip Rhythm Strip: Sinus Rhythm Rate: 73 Ectopy: PAC(s) Physical Exam Narrative General: Alert, no apparent distress HEENT: Atraumatic, normocephalic Eyes: Anicteric, normal conjunctiva, extraocular movements grossly intact Neck: Supple Respiratory: Somewhat diminished at the bases, normal respiratory effort Cardiovascular: Regular rate GI: Soft, fairly protuberant Extremities: No edema Musculoskeletal: Moving all extremities Neuro: No overt focal neurological deficits Skin: No rashes appreciated Psych: Reluctant to engage Assessment & Plan Assessment/Plan (1) UTI (urinary tract infection): (2) HTN (hypertension): (3) COPD (chronic obstructive pulmonary disease): (4) CHF (congestive heart failure): (5) Hypothyroidism: (6) Schizophrenia: (7) Type 2 diabetes mellitus: PLAN: Plan # Decreased level of consciousness, 2/2 metabolic encephalopathy 2/2 UTI -Elevated white blood cell count and UA is concerning for UTI, also reports some chronic wounds on his butt but unclear if the have been any changes, he reported these were chronic but refused to answer any further questions -Suspect decreased level consciousness is due to infection -Urine and blood cultures -Consult wound care for buttock wounds -IV antibiotics -Depakote level within normal limits -Will check ammonia -Will continue home Ativan and morphine but at lower doses until patient more awake and alert -Will check TSH given patient's hypothyroidism -12/13: Patient does have chronic Winn which is changed once a month, last changed 11/16 and supposed to get a suprapubic catheter in December. Urine growing gram-negative, possible Pseudomonas, continue Zosyn await sensitivities. Restarted home Ativan at regular doses #Gram negative UTI -Panculture -IV antibiotics -12/13: Urine growing gram-negative rosalba, possible Pseudomonas. Continue Zosyn, await sensitivities # History of chronic heart failure unclear subtype -Patient on diuretics at home, will hold at this time -Daily weights, I's and O's -Holding diuretics given infection and low blood pressure -No echo in our system, unclear if reduced or preserved HF but it is chronic and does not seem to be in exacerbation -12/13: Given patient's current stability will resume diuretics #Type 2 diabetes mellitus with hypoglycemic episode -Glucose originally in the 50s and improved with oral glucose -Glucose checks and sliding scale insulin -Decrease long-acting insulin -12/13: Glucose has been fairly well-controlled on half home dose of insulin, may need further adjustment as patient increases p.o. intake however at this time continue the 10 units twice daily Chronic problems: -Schizophrenia: Continue Haldol, Depakote and duloxetine, will hold Effexor given potential for serotonin syndrome if administered with duloxetine -Hypothyroidism: Continue levothyroxine -Chronic anticoagulation: Will need to verify reason for patient's anticoagulation -Hypertension: Hold lisinopril given blood pressure low, resume as blood pressure and labs allow -Hx COPD: -Per chart review #DVT ppx: Kraig Bejarano MD Time spent in the patient's overall evaluation,decision-making process, review of diagnostic data, adjustment of management, discussion with other providers, nursing nursing and ancillary staff involved in patient's care documentation, 37 minutes Charges/Coding Visit Charges Inpatient E&M: 24296 [facility] L2
[2023-12-14] MEDS: Furosemide 40 MG Tablet PO (16:28)
[2023-12-14] MEDS: Phenazopyridine 95 MG Tablet PO ×2 (16:28→23:32)
[2023-12-14] MEDS: Potassium Chloride Oral Tablet 20 MEQ PO (16:28)
[2023-12-14 16:30] LABS: Hemoglobin A1c 6.8 % (3.8-5.6)
[2023-12-14] MEDS: LORazepam 0.5 MG Tablet PO (16:32)
[2023-12-14 17:26] LABS: Bedside Glucose 171 mg/dL (74-106)
--- NOTE | 2023-12-14 20:44 | EKG12_ITS ---
Test Reason : RYTHMN CHANGE Blood Pressure : / mmHG Vent. Rate : 044 BPM Atrial Rate : 000 BPM P-R Int : 000 ms QRS Dur : 126 ms QT Int : 450 ms P-R-T Axes : 000 058 040 degrees QTc Int : 384 ms Atrial fibrillation with slow ventricular response Right bundle branch block Abnormal ECG When compared with ECG of 13-DEC-2023 10:14, Atrial fibrillation has replaced Sinus rhythm Vent. rate has decreased BY 29 BPM Confirmed by ABNER GROVER, KACEY ([id number]), online editor CANDIS CHEN ([id number]) on 12/18/2023 11:36:35 AM Referred By: Confirmed By:KACEY LEVINE MD
[2023-12-14 21:53] LABS: Bedside Glucose 158 mg/dL (74-106)
[2023-12-14] MEDS: morphine SR 15 MG Tablet 30 MG PO (23:31)
[2023-12-14] MEDS: Atorvastatin Calcium 20 MG Tablet PO (23:32)
[2023-12-14] MEDS: Senna/Docusate Sodium 1 Tablet 2 TABLET PO (23:32)
[2023-12-14 23:52] LABS: Bedside Glucose 149 mg/dL (74-106)
[2023-12-15] VITALS (8 sets, daily range): BP systolic 110–131; BP diastolic 55–58; PULSE 53–57; RESP 12–16; TEMP 36.2–36.6; O2SAT 96–100; BMI 33.3
[2023-12-15] MEDS: Magnesium Sulfate 1 GM in Dextrose 5%-Water (100mL Bag) 100 ML IV (02:21)
[2023-12-15] MEDS: Gabapentin 600 MG Tablet PO ×2 (06:14→13:22)
[2023-12-15] MEDS: Piperacil/Tazobactam 3.375 GM in 0.9% Normal Saline (50mL MB+) 50 ML IV ×2 (06:14→13:19)
[2023-12-15] MEDS: Levothyroxine 50 MCG Tablet PO (06:14)
[2023-12-15] MEDS: Phenazopyridine 95 MG Tablet PO ×2 (06:14→13:22)
[2023-12-15 06:54] LABS: Bedside Glucose 144 mg/dL (74-106)
[2023-12-15] MEDS: APIXABAN 5 MG TABLET PO (08:25)
[2023-12-15] MEDS: Divalproex Sodium 250 MG Tablet 500 MG PO ×2 (08:25→13:23)
[2023-12-15] MEDS: DULoxetine Hcl 60 MG Capsule PO (08:26)
[2023-12-15] MEDS: Folic Acid 1 MG Tablet PO (08:26)
[2023-12-15] MEDS: Insulin Glargine-YFGN 100 UNIT/ML Pen 10 UNIT SC (08:27)
[2023-12-15] MEDS: Haloperidol 1 MG Tablet 2 MG PO (08:27)
[2023-12-15] MEDS: Senna/Docusate Sodium 1 Tablet 2 TABLET PO (08:28)
--- NOTE | 2023-12-15 08:29 | WOUNDNOTE ---
wound photo: right hand
[2023-12-15] MEDS: Furosemide 40 MG Tablet PO (08:34)
[2023-12-15] MEDS: morphine SR 15 MG Tablet 30 MG PO (08:34)
[2023-12-15] MEDS: Potassium Chloride Oral Tablet 20 MEQ PO (08:35)
--- NOTE | 2023-12-15 09:50 | PCM.CONS.C ---
Assessment & Plan Assessment/Plan (1) Bradycardia: PLAN: RBBB on ECG. Second ECG with Type I Wenckebach. Patient Asymptomatic. Recommend Holter monitor as outpatient. (2) HTN (hypertension): PLAN: As per IM (3) UTI (urinary tract infection): PLAN: On ABX HPI Consult Data Date of Consult: 12/15/23 HPI Narrative Reason for Consultation: Bradycardia HPI Narrative: Patient admitted with decreased responsiveness and being treated for UTI. Not a good historian. He is irritable and wishes to 'go home'. Patient denies hx of heart disease. No history of A. Fib listed but it is noted that the patient is on anticoagulation with Apixaban. Noted to have bradycardia yesterday. [facility] Medical History (Updated 12/15/23 @ 12:[address] Zuly Corcoran MD) Dysphagia Schizophrenia HTN (hypertension) CHF (congestive heart failure) Hyperlipidemia Anemia Hypothyroidism Muscle weakness (generalized) Type 2 diabetes mellitus COPD (chronic obstructive pulmonary disease) Home Medications ?Medication ?Instructions ?Recorded ?Last Taken ?Type acetaminophen 325 mg tablet 650 mg PO Q8H PRN pain 12/13/23 Unknown History acetic acid 0.25 % irrigation 30 ml irrigation QPM 12/13/23 Unknown History solution apixaban 5 mg tablet (Eliquis) 5 mg PO BID blood thinner 12/13/23 Unknown History atorvastatin 20 mg tablet 20 mg PO QHS cad 12/13/23 Unknown History bisacodyl 10 mg rectal suppository 10 mg SD DAILY PRN constipation 12/13/23 Unknown History (Dulcolax (bisacodyl)) bisacodyl 5 mg tablet,delayed 5 mg PO DAILY PRN constipation 12/13/23 Unknown History release (Dulcolax (bisacodyl)) cholecalciferol (vitamin D3) 125 125 mcg PO MO suppliment 12/13/23 Unknown History mcg (5,000 unit) capsule cyanocobalamin (vitamin B-12) 500 500 mcg PO QPM suppliment 12/13/23 Unknown History mcg tablet (B-12 DOTS) divalproex 500 mg tablet,delayed 500 mg PO TID scitzophrenia 12/13/23 Unknown History release duloxetine 60 mg capsule,delayed 60 mg PO DAILY depression 12/13/23 Unknown History release folic acid 1 mg tablet 1 mg PO DAILY suppliment 12/13/23 Unknown History furosemide 20 mg tablet 20 mg PO DAILY diuretic 12/13/23 Unknown History furosemide 40 mg tablet 40 mg PO DAILY diuretic 12/13/23 Unknown History gabapentin 600 mg tablet 600 mg PO TID nerve pain 12/13/23 Unknown History glucagon 1 mg solution for 1 mg subcut DAILY 12/13/23 Unknown History injection (GlucaGen HypoKit) haloperidol 2 mg tablet 2 mg PO BID scitzophrenia 12/13/23 Unknown History insulin glargine 100 unit/mL (3 20 unit subcut BID diabetes 12/13/23 Unknown History mL) subcutaneous pen (Basaglar KwikPen U-100 Insulin) insulin lispro 100 unit/mL 1 sliding scale dose subcut TID 12/13/23 Unknown History subcutaneous pen (Humalog KwikPen diabetes (U-100) Insulin) ketorolac 0.5 % eye drops 1 drp EACH EYE 4X/DAY RIGHT EYE 12/13/23 Unknown History SURGERY levothyroxine 50 mcg tablet 50 mcg PO DAILY thyroid 12/13/23 Unknown History lidocaine HCl 4 % topical cream 1 applic topical DAILY right knee 12/13/23 Unknown History (Aspercreme (lidocaine HCl)) pain lisinopril 5 mg tablet 5 mg PO DAILY bp 12/13/23 Unknown History loperamide 2 mg tablet 4 mg PO DAILY PRN loose stool 12/13/23 Unknown History lorazepam 0.5 mg tablet 0.5 mg PO 1700 anxiety 12/13/23 Unknown History lorazepam 1 mg tablet 1 mg PO TID anxiety 12/13/23 Unknown History magnesium hydroxide 400 mg/5 mL 30 ml PO DAILY PRN constipation 12/13/23 Unknown History oral suspension (Milk of Magnesia) melatonin 5 mg tablet 5 mg PO QHS sleep 12/13/23 Unknown History morphine 30 mg tablet,extended 30 mg PO BID pain 12/13/23 Unknown History release ofloxacin 0.3 % eye drops 1 drp ophthalmic (eye) 4X/DAY 12/13/23 Unknown History RIGHT EYE SURGERY polyethylene glycol 3350 17 17 g PO DAILY constipation 12/13/23 Unknown History gram/dose oral powder (ClearLax) potassium chloride 20 mEq 20 meq PO DAILY suppliment 12/13/23 Unknown History tablet,extended release sennosides 8.6 mg-docusate sodium 1 tab-cap PO BID 12/13/23 Unknown History 50 mg capsule (Senna Plus) venlafaxine 150 mg 150 mg PO DAILY depression 12/13/23 Unknown History capsule,extended release 24 hr venlafaxine 37.5 mg 37.5 mg PO DAILY depression 12/13/23 Unknown History capsule,extended release 24 hr (Effexor XR) vit B-xpagcvyp-anziuiounxd lotion 1 applic topical BID PRN dry skin 12/13/23 Unknown History (Cetaphil Moisturizing lotion) Allergy/AdvReac Type Severity Reaction Status Date / Time No Known Allergies Allergy Verified 12/13/23 09:51 Social History (Updated 12/13/23 @ 13:04 by Teresa Hall) housing: long-term Smoking Status: Unknown if ever smoked Physical Exam Narrative Comfortable. S1+S2. Chest CTA. Trace bilateral ankle edema Risk Stratification Risk Stratification Applicable: No Objective Data Vital Signs: Vital Signs Temp Pulse Resp BP Pulse Ox O2 Del Method O2 Flow Rate 97.8 F 53 L 16 110/55 L 100 Nasal Cannula 2 12/15/23 05:10 12/15/23 05:10 12/15/23 05:10 12/15/23 05:10 12/15/23 07:48 12/15/23 07:48 12/15/23 07:48 Oxygen Flow Rate (L/min) 2 Oxygen Delivery Method Nasal Cannula Weight: 229 lb 15.074 oz Body Mass Index (BMI) 33.3 Intake & Output: Intake and Output for Last 24 Hours 12/13/23 12/14/23 12/15/23 23:59 23:59 23:59 Intake Total 1130 / 1130 1160 / 1160 152 / 152 Output Total 450 / 650 1475 / 1475 500 / 500 Balance 680 / 480 -315 / -315 -348 / -348 Lab / Micro Data 12/14/23 06:55 12/14/23 06:55 Labs: Laboratory Results - last 24 hr 12/13/23 10:10: Diff Path Review Reviewed 12/14/23 06:55: Diff Path Review Reviewed, Hemoglobin A1c 6.8 H 12/14/23 12:08: POC Glucose 192 H 12/14/23 16:35: POC Glucose 171 H 12/14/23 21:15: POC Glucose 158 H 12/14/23 23:34: POC Glucose 149 H 12/15/23 06:19: POC Glucose 144 H Micro: Microbiology 12/13/23 10:27 Urine Catheter - Winn Urine Culture - Preliminary GNR Poss Pseudomonas sp Rhythm Strip Rhythm Strip: Sinus Rhythm Rate: 73 Ectopy: PAC(s) Cardiology Labs/Tests 12/14/23 06:55: Hemoglobin A1c 6.8 H Rhythm: EKG: ECHO: Stress Test: Cardiac Cath: PCI: CT Surgery: Holter monitor: EPS: PPM: CXR: Chest CT Scan:
[2023-12-15] MEDS: Insulin Lispro 100 UNIT/ML INSULN.PEN SC (11:05)
[2023-12-15 11:24] LABS: Bedside Glucose 162 mg/dL (74-106)
[2023-12-15 12:42] LABS: Anion Gap 7 (5-15); BUN 14 mg/dL (7-18); BUN/Creat Ratio 15.5 RATIO (10-20); Calcium,Total 8.8 mg/dL (8.5-10.1); Chloride 97 mmol/L (98-107); EST Glomerular Filtration Rate 86 mL/min (>60); Est Glom Filt Rate - Afr Amer 105 mL/min (>60); Glucose 171 mg/dL (74-106); Potassium 4.3 mmol/L (3.5-5.1); Sodium Level 133 mmol/L (136-145)
--- NOTE | 2023-12-15 12:56 | CASEMGMT ---
Patient is ready for discharge back to [facility]. RIAZ called Margoth at [facility] and let her know this information. RIAZ also verified fax number for orders. Await d/c orders. Plan: d/c back to [facility] under intermediate level of care. Physicians will transport patient. Alissa MELO
--- NOTE | 2023-12-15 13:16 | PCM.TXEXTCAR ---
Diet Diet Order/Speech Therapy: 12/13/23 14:48 Diet: Cardiac: Calorie-Controlled Is pt able to select menu?: Yes How many daily calories?: 1999 calorie Routine Orders/Code Status Suppository Type: Dulcolax 10mg Suppository Frequency: Daily PRN Change House Catheter: Pt with chronic house O2 Liters per Minute: 2 O2 Frequency: Continuous Wound(s) bilateral buttocks: Wound Type: Pressure Injury right pointer finger: Wound Type: Burn Dressing Change: Adaptic Therapies Physical Therapy: Eval and Treat Problem/Diagnosis (1) Bradycardia: Status: Acute Code(s): R00.1 - Bradycardia, unspecified (2) HTN (hypertension): Status: Chronic Code(s): I10 - Essential (primary) hypertension (3) UTI (urinary tract infection): Status: Acute Code(s): N39.0 - Urinary tract infection, site not specified (4) Burn of hand: Status: Acute Code(s): T23.009A - Burn of unspecified degree of unspecified hand, unspecified site, initial encounter Plan #metabolic encephalopathy 2/2pseudomonas UTI #Chronic indwelling house catheter # History of chronic heart failure unclear subtype #Type 2 diabetes mellitus with hypoglycemic episode #Asymptomatic bradycardia #Hand burn -Schizophrenia -Hypothyroidism -Chronic anticoagulation -Hypertension -Hx COPD ALDO LOVE, is a 78 M with a history of schizophrenia, COPD, anticoagulation on Eliquis, hypertension, diabetes mellitus, chronic pain, hypothyroidism who presented to [facility] ED 12/13/2023 due to decreased responsiveness at [facility] where he presented for cataract surgery. He was found to have low glucose and pseudomonas UTI. Insulin was decreased and pt was on IV abx until sensitivities available. Pt improved significantly and was stable for d/c home. Of note during admission pt spilled coffee on his hand and developed a blister which was covered and evaluated by wound nurse. Additionally pt had asymptomatic bradycardia and was seen by cardiology and it was recommended 24hr holter monitor. Pt on day of d/c reported feeling much better. D/c inst as followed: DISCHARGE INSTRUCTIONS PLEASE READ *Please take this with you to your next doctors appointment* -Due to low blood glucose your long acting insulin has been decreased to 10mg twice daily -Two SNRIs have the potential of interaction, your cymbalta was continued in the hospital and effexor was held, would consider continuing only one -You will be discharged on an additional 5 days of levquin for your urinary tract infection -You will be discharged with an order for a holter monitor for 24 hours to evaluate for extent of bradycardia due to a low heart rate in the hospital that was asymptomatic -Please call your primary care provider's office upon discharge to schedule a hospital follow up within 1 week. -For any concerning signs or symptoms please call 911 or proceed to the nearest emergency department Allergies/Procedures Done in Hospital Allergies No Known Allergies Allergy (Verified 12/13/23 09:51) Type of Care/Length of Stay Estimated LOS: More Than 30 Days Type of Care Needed: Intermediate Rehab Potential: Fair Prognosis: Fair Additional Orders/Day of Discharge Day of Discharge: 12/15/23 Dietary and Speech Recommendations Dietitian Recommendations/Changes: Will change diet to 2000 sanjuana Cardiac d/t pmhx Will order 4 oz glucerna shake qid w/ medpass for increased nutrition if consumed to help w/ PI healing of sophia buttock and 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 Discharge Plan Admission Admit Date/Time: 12/13/23 12:21 Primary Reason for Your Visit: decreased level of conciousness Attending Provider: Wanda Bejarano Primary Care Provider: Care Physician,No Primary Consulting Providers: Zuly Corcoran Instructions Patient Instructions: ED Fall Prevention Additional Instructions / Restrictions: DISCHARGE INSTRUCTIONS PLEASE READ *Please take this with you to your next doctors appointment* -Due to low blood glucose your long acting insulin has been decreased to 10mg twice daily -Two SNRIs have the potential of interaction, your cymbalta was continued in the hospital and effexor was held, would consider continuing only one -You will be discharged on an additional 5 days of levquin for your urinary tract infection -You will be discharged with an order for a holter monitor for 24 hours to evaluate for extent of bradycardia due to a low heart rate in the hospital that was asymptomatic -Please call your primary care provider's office upon discharge to schedule a hospital follow up within 1 week. -For any concerning signs or symptoms please call 911 or proceed to the nearest emergency department Discharge Orders/Prescriptions Prescriptions: New levofloxacin 750 mg tablet 750 mg PO DAILY 5 Days Qty: 5 0RF Continued acetic acid 0.25 % solution 30 ml irrigation QPM Rx Instructions: for urinary catheter flush lidocaine HCl [Aspercreme (lidocaine HCl)] 4 % cream 1 applic topical DAILY lorazepam 1 mg tablet 1 mg PO TID Rx Instructions: 7am 12 noon and bedtime Cetaphil Moisturizing Lotion 1 applic topical BID PRN (Reason: dry skin) divalproex 500 mg tablet,delayed release (DR/EC) 500 mg PO TID bisacodyl [Dulcolax (bisacodyl)] 5 mg tablet,delayed release (DR/EC) 5 mg PO DAILY PRN (Reason: constipation) bisacodyl [Dulcolax (bisacodyl)] 10 mg suppository 10 mg [place] DAILY PRN (Reason: constipation) venlafaxine 150 mg capsule,extended release 24hr 150 mg PO DAILY Rx Instructions: TAKE 1 CAPSULE WITH 37.5MG CAPSULE ONCE DAILY TO EQUAL 187.5MG DOSE duloxetine 60 mg capsule,delayed release(DR/EC) 60 mg PO DAILY venlafaxine [Effexor XR] 37.5 mg capsule,extended release 24hr 37.5 mg PO DAILY Rx Instructions: TAKE 1 CAPSULE WITH 150MG CAPSULE ONCE DAILY TO EQUAL 187.5MG DOSE gabapentin 600 mg tablet 600 mg PO TID folic acid 1 mg tablet 1 mg PO DAILY GlucaGen HypoKit 1 mg recon soln 1 mg subcut DAILY Eliquis 5 mg tablet 5 mg PO BID haloperidol 2 mg tablet 2 mg PO BID insulin lispro [Humalog KwikPen Insulin] 100 unit/mL insulin pen 1 sliding scale dose subcut TID Protocol: 6. Sliding Scale Insulin Custom Condition: mg/dl range Dose/Route: Number of Units Condition: 151-200 Dose/Route: 2 Condition: 201-250 Dose/Route: 4 Condition: 251-300 Dose/Route: 6 Condition: 301-350 Dose/Route: 8 Condition: 351-400 Dose/Route: 10 Condition: 400+ Dose/Route: CALL MD Protocol Text: Custom Sliding Scale Patient Comments: 151-200=2u 201-250=4u 251-300=6u 301-250=8u 351-400=10u greater than 400 call ketorolac 0.5 % drops 1 drp EACH EYE 4X/DAY Patient Comments: UNSURE OF SURGERY DATE furosemide 40 mg tablet 40 mg PO DAILY levothyroxine 50 mcg tablet 50 mcg PO DAILY lisinopril 5 mg tablet 5 mg PO DAILY furosemide 20 mg tablet 20 mg PO DAILY loperamide 2 mg tablet 4 mg PO DAILY PRN (Reason: loose stool) Rx Instructions: TAKE 2 TABS AT FIRST LOOSE STOOL, THEN TAKE 1 TABLET AFTER EACH ADDITIONAL. DO NOT EXCEED 16MG IN 24 HOURS. melatonin 5 mg tablet 5 mg PO QHS magnesium hydroxide [Milk of Magnesia] 400 mg/5 mL suspension 30 ml PO DAILY PRN (Reason: constipation) morphine 30 mg tablet extended release 30 mg PO BID ofloxacin 0.3 % drops 1 drp ophthalmic (eye) 4X/DAY Patient Comments: UNSURE OF SURGERY DATE potassium chloride 20 mEq tablet extended release 20 meq PO DAILY polyethylene glycol 3350 [ClearLax] 17 gram/dose powder 17 g PO DAILY Senna Plus 8.6-50 mg capsule 1 tab-cap PO BID acetaminophen 325 mg tablet 650 mg PO Q8H PRN (Reason: pain) cholecalciferol (vitamin D3) 125 mcg (5,000 unit) capsule 125 mcg PO MO cyanocobalamin (vitamin B-12) [B-12 DOTS] 500 mcg tablet 500 mcg PO QPM atorvastatin 20 mg tablet 20 mg PO QHS lorazepam 0.5 mg tablet 0.5 mg PO 1700 Changed insulin glargine [Basaglar KwikPen U-100 Insulin] 100 unit/mL (3 mL) insulin pen 10 unit subcut BID Qty: 30 0RF Other Ambulatory Orders: Cardiac Holter Monitor, 24 Hrs (Routine) Timeframe: 2 Days Facility: [facility] - Location: Cardiovascular Services Ordered By: Dr. Wanda Bejarano Referrals / Follow Up: Care Physician,No Primary [Primary Care Provider] - Disposition Disposition (needs filled in before D/C Order can be placed): NonSkilled NH/Intermed Care
[2023-12-15] MEDS: LORazepam 1 MG Tablet PO (13:22)
--- NOTE | 2023-12-15 13:35 | DS.PCM_ITS ---
Providers Date of Admission: 12/13/23 Date of Discharge: 12/15/23 Primary Care Physician: No Primary Care Phys Consultations 12/13/23 12:47 Consult: Onc/Wound/surgical elastic knitter Routine Comment: Reason for Consult:: ?pressure sores on bottom per pt 12/14/23 23:05 Consult: Cardiology Routine Consulting Provider: Zuly Corcoran Reason for Consult: extreme bradycardia, ? need for pacemaker EMERGENT Consult: No MD Notified: Yes Date Notified: 12/15/23 Time Notified: 06:42 Method of Notification: Text Reason For Visit: UTI Diagnosis Discharge Diagnosis (1) Bradycardia: Status: Acute Code(s): R00.1 - Bradycardia, unspecified (2) HTN (hypertension): Status: Chronic Code(s): I10 - Essential (primary) hypertension (3) UTI (urinary tract infection): Status: Acute Code(s): N39.0 - Urinary tract infection, site not specified (4) Burn of hand: Status: Acute Code(s): T23.009A - Burn of unspecified degree of unspecified hand, unspecified site, initial encounter Plan #metabolic encephalopathy 2/2pseudomonas UTI #Chronic indwelling house catheter # History of chronic heart failure unclear subtype #Type 2 diabetes mellitus with hypoglycemic episode #Asymptomatic bradycardia #Hand burn -Schizophrenia -Hypothyroidism -Chronic anticoagulation -Hypertension -Hx COPD Medications at Discharge Home Medications acetaminophen 325 mg tablet 650 mg PO Q8H PRN pain 12/13/23 acetic acid 0.25 % irrigation solution 30 ml irrigation QPM 12/13/23 apixaban 5 mg tablet (Eliquis) 5 mg PO BID blood thinner 12/13/23 atorvastatin 20 mg tablet 20 mg PO QHS cad 12/13/23 bisacodyl 10 mg rectal suppository (Dulcolax (bisacodyl)) 10 mg TN DAILY PRN constipation 12/13/23 bisacodyl 5 mg tablet,delayed release (Dulcolax (bisacodyl)) 5 mg PO DAILY PRN constipation 12/13/23 cholecalciferol (vitamin D3) 125 mcg (5,000 unit) capsule 125 mcg PO MO suppliment 12/13/23 cyanocobalamin (vitamin B-12) 500 mcg tablet (B-12 DOTS) 500 mcg PO QPM suppliment 12/13/23 divalproex 500 mg tablet,delayed release 500 mg PO TID scitzophrenia 12/13/23 duloxetine 60 mg capsule,delayed release 60 mg PO DAILY depression 12/13/23 folic acid 1 mg tablet 1 mg PO DAILY suppliment 12/13/23 furosemide 20 mg tablet 20 mg PO DAILY diuretic 12/13/23 furosemide 40 mg tablet 40 mg PO DAILY diuretic 12/13/23 gabapentin 600 mg tablet 600 mg PO TID nerve pain 12/13/23 glucagon 1 mg solution for injection (GlucaGen HypoKit) 1 mg subcut DAILY 12/13/23 haloperidol 2 mg tablet 2 mg PO BID scitzophrenia 12/13/23 insulin lispro 100 unit/mL subcutaneous pen (Humalog KwikPen (U-100) Insulin) 1 sliding scale dose subcut TID diabetes 12/13/23 ketorolac 0.5 % eye drops 1 drp EACH EYE 4X/DAY RIGHT EYE SURGERY 12/13/23 levothyroxine 50 mcg tablet 50 mcg PO DAILY thyroid 12/13/23 lidocaine HCl 4 % topical cream (Aspercreme (lidocaine HCl)) 1 applic topical DAILY right knee pain 12/13/23 lisinopril 5 mg tablet 5 mg PO DAILY bp 12/13/23 loperamide 2 mg tablet 4 mg PO DAILY PRN loose stool 12/13/23 lorazepam 0.5 mg tablet 0.5 mg PO 1700 anxiety 12/13/23 lorazepam 1 mg tablet 1 mg PO TID anxiety 12/13/23 magnesium hydroxide 400 mg/5 mL oral suspension (Milk of Magnesia) 30 ml PO DAILY PRN constipation 12/13/23 melatonin 5 mg tablet 5 mg PO QHS sleep 12/13/23 morphine 30 mg tablet,extended release 30 mg PO BID pain 12/13/23 ofloxacin 0.3 % eye drops 1 drp ophthalmic (eye) 4X/DAY RIGHT EYE SURGERY 12/13/23 polyethylene glycol 3350 17 gram/dose oral powder (ClearLax) 17 g PO DAILY constipation 12/13/23 potassium chloride 20 mEq tablet,extended release 20 meq PO DAILY suppliment 12/13/23 sennosides 8.6 mg-docusate sodium 50 mg capsule (Senna Plus) 1 tab-cap PO BID 12/13/23 venlafaxine 150 mg capsule,extended release 24 hr 150 mg PO DAILY depression 12/13/23 venlafaxine 37.5 mg capsule,extended release 24 hr (Effexor XR) 37.5 mg PO DAILY depression 12/13/23 vit A-oryhxaol-pvijjahrifz lotion (Cetaphil Moisturizing lotion) 1 applic topical BID PRN dry skin 12/13/23 insulin glargine 100 unit/mL (3 mL) subcutaneous pen (Basaglar KwikPen U-100 Insulin) 10 unit (0.1 mL) subcut BID diabetes #30 mL 12/15/23 levofloxacin 750 mg tablet 750 mg PO DAILY 5 days #5 tabs 12/15/23 Hospital Course Summary of Care Provided Minutes Spent on Discharge: 31 Hospital Course: ALDO LOVE, is a 78 M with a history of schizophrenia, COPD, anticoagulation on Eliquis, hypertension, diabetes mellitus, chronic pain, hypothyroidism who presented to [facility] ED 12/13/2023 due to decreased responsiveness at [facility] where he presented for cataract surgery. He was found to have low glucose and pseudomonas UTI. Insulin was decreased and pt was on IV abx until sensitivities available. Pt improved significantly and was stable for d/c home. Of note during admission pt spilled coffee on his hand and developed a blister which was covered and evaluated by wound nurse. Additionally pt had asymptomatic bradycardia and was seen by cardiology and it was recommended 24hr holter monitor. Pt on day of d/c reported feeling much better. D/c inst as followed: DISCHARGE INSTRUCTIONS PLEASE READ *Please take this with you to your next doctors appointment* -Due to low blood glucose your long acting insulin has been decreased to 10mg twice daily -Two SNRIs have the potential of interaction, your cymbalta was continued in the hospital and effexor was held, would consider continuing only one -You will be discharged on an additional 5 days of levquin for your urinary tract infection -You will be discharged with an order for a holter monitor for 24 hours to evaluate for extent of bradycardia due to a low heart rate in the hospital that was asymptomatic -Please call your primary care provider's office upon discharge to schedule a hospital follow up within 1 week. -For any concerning signs or symptoms please call 911 or proceed to the nearest emergency department Physical Exam Narrative General: Alert, no apparent distress HEENT: Atraumatic, normocephalic Eyes: Anicteric, normal conjunctiva, extraocular movements grossly intact Neck: Supple Respiratory: Somewhat diminished at the bases, normal respiratory effort Cardiovascular: Regular rate GI: Soft, fairly protuberant Extremities: No edema Musculoskeletal: Moving all extremities Neuro: No overt focal neurological deficits Skin: right hand covered 2/2 coffee burn Psych: cooperative Weight / BMI Weight Weight: 104.3 kg Body Mass Index (BMI) 33.3 ABG / Lab / Microbiology Data 12/14/23 06:55 12/15/23 11:48 Laboratory: Laboratory Results - last 24 hr 12/14/23 06:55: Hemoglobin A1c 6.8 H 12/14/23 16:35: POC Glucose 171 H 12/14/23 21:15: POC Glucose 158 H 12/14/23 23:34: POC Glucose 149 H 12/15/23 06:19: POC Glucose 144 H 12/15/23 11:02: POC Glucose 162 H 12/15/23 11:48: Sodium 133 L, Potassium 4.3, Chloride 97 L, Carbon Dioxide 29.0, Anion Gap 7, BUN 14, Creatinine 0.90, Estim Creat Clear Calc 80.50, Est GFR (MDRD) Af Amer 105, Est GFR (MDRD) Non-Af 86, BUN/Creatinine Ratio 15.5, Glucose 171 H, Calcium 8.8 Microbiology: Microbiology 12/13/23 10:27 Urine Catheter - House Urine Culture - Final Pseudomonas aeruginosa 12/13/23 10:40 Blood Culture (Wb) - Arm Left Blood Culture - Preliminary No growth in 48 hours. 12/13/23 10:40 Blood Culture (Wb) - Anticubital Right Blood Culture - Preliminary No growth in 48 hours. Meaningful Use Info Meaningful Use Meaningful Use Diagnoses (Choose all that apply): None applicable Ischemic Stroke Statin Dosing Therapy Reference: STATIN DOSE THERAPY REFERENCE: * Patients > 75 years receive moderate or high dose statin therapy. * Patients 75 years or YOUNGER should receive HIGH intensity statin dose unless contraindicated. You will be required to document reason for non-treatment if statin daily dose does not meet guidelines. HIGH DOSE STATIN THERAPY DAILY Atorvastatin > than or = to 40 mg Rosuvastatin > than or = to 20 mg Amlodipine + Atorvastatin > than or = to 2.5/40 mg Ezetimibe + Simvastatin 10/80 mg Simvastatin 80mg Discharge Plan Admission Admit Date/Time: 12/13/23 12:21 Primary Reason for Your Visit: decreased level of conciousness Attending Provider: Wanda Bejarano Primary Care Provider: Care Physician,No Primary Consulting Providers: Zuly Corcoran Instructions Patient Instructions: ED Fall Prevention Additional Instructions / Restrictions: DISCHARGE INSTRUCTIONS PLEASE READ *Please take this with you to your next doctors appointment* -Due to low blood glucose your long acting insulin has been decreased to 10mg twice daily -Two SNRIs have the potential of interaction, your cymbalta was continued in the hospital and effexor was held, would consider continuing only one -You will be discharged on an additional 5 days of levquin for your urinary tract infection -You will be discharged with an order for a holter monitor for 24 hours to evaluate for extent of bradycardia due to a low heart rate in the hospital that was asymptomatic -Please call your primary care provider's office upon discharge to schedule a hospital follow up within 1 week. -For any concerning signs or symptoms please call 911 or proceed to the nearest emergency department Discharge Orders/Prescriptions Prescriptions: New levofloxacin 750 mg tablet 750 mg PO DAILY 5 Days Qty: 5 0RF Continued acetic acid 0.25 % solution 30 ml irrigation QPM Rx Instructions: for urinary catheter flush lidocaine HCl [Aspercreme (lidocaine HCl)] 4 % cream 1 applic topical DAILY lorazepam 1 mg tablet 1 mg PO TID Rx Instructions: 7am 12 noon and bedtime Cetaphil Moisturizing Lotion 1 applic topical BID PRN (Reason: dry skin) divalproex 500 mg tablet,delayed release (DR/EC) 500 mg PO TID bisacodyl [Dulcolax (bisacodyl)] 5 mg tablet,delayed release (DR/EC) 5 mg PO DAILY PRN (Reason: constipation) bisacodyl [Dulcolax (bisacodyl)] 10 mg suppository 10 mg [place] DAILY PRN (Reason: constipation) venlafaxine 150 mg capsule,extended release 24hr 150 mg PO DAILY Rx Instructions: TAKE 1 CAPSULE WITH 37.5MG CAPSULE ONCE DAILY TO EQUAL 187.5MG DOSE duloxetine 60 mg capsule,delayed release(DR/EC) 60 mg PO DAILY venlafaxine [Effexor XR] 37.5 mg capsule,extended release 24hr 37.5 mg PO DAILY Rx Instructions: TAKE 1 CAPSULE WITH 150MG CAPSULE ONCE DAILY TO EQUAL 187.5MG DOSE gabapentin 600 mg tablet 600 mg PO TID folic acid 1 mg tablet 1 mg PO DAILY GlucaGen HypoKit 1 mg recon soln 1 mg subcut DAILY Eliquis 5 mg tablet 5 mg PO BID haloperidol 2 mg tablet 2 mg PO BID insulin lispro [Humalog KwikPen Insulin] 100 unit/mL insulin pen 1 sliding scale dose subcut TID Protocol: 6. Sliding Scale Insulin Custom Condition: mg/dl range Dose/Route: Number of Units Condition: 151-200 Dose/Route: 2 Condition: 201-250 Dose/Route: 4 Condition: 251-300 Dose/Route: 6 Condition: 301-350 Dose/Route: 8 Condition: 351-400 Dose/Route: 10 Condition: 400+ Dose/Route: CALL MD Protocol Text: Custom Sliding Scale Patient Comments: 151-200=2u 201-250=4u 251-300=6u 301-250=8u 351-400=10u greater than 400 call ketorolac 0.5 % drops 1 drp EACH EYE 4X/DAY Patient Comments: UNSURE OF SURGERY DATE furosemide 40 mg tablet 40 mg PO DAILY levothyroxine 50 mcg tablet 50 mcg PO DAILY lisinopril 5 mg tablet 5 mg PO DAILY furosemide 20 mg tablet 20 mg PO DAILY loperamide 2 mg tablet 4 mg PO DAILY PRN (Reason: loose stool) Rx Instructions: TAKE 2 TABS AT FIRST LOOSE STOOL, THEN TAKE 1 TABLET AFTER EACH ADDITIONAL. DO NOT EXCEED 16MG IN 24 HOURS. melatonin 5 mg tablet 5 mg PO QHS magnesium hydroxide [Milk of Magnesia] 400 mg/5 mL suspension 30 ml PO DAILY PRN (Reason: constipation) morphine 30 mg tablet extended release 30 mg PO BID ofloxacin 0.3 % drops 1 drp ophthalmic (eye) 4X/DAY Patient Comments: UNSURE OF SURGERY DATE potassium chloride 20 mEq tablet extended release 20 meq PO DAILY polyethylene glycol 3350 [ClearLax] 17 gram/dose powder 17 g PO DAILY Senna Plus 8.6-50 mg capsule 1 tab-cap PO BID acetaminophen 325 mg tablet 650 mg PO Q8H PRN (Reason: pain) cholecalciferol (vitamin D3) 125 mcg (5,000 unit) capsule 125 mcg PO MO cyanocobalamin (vitamin B-12) [B-12 DOTS] 500 mcg tablet 500 mcg PO QPM atorvastatin 20 mg tablet 20 mg PO QHS lorazepam 0.5 mg tablet 0.5 mg PO 1700 Changed insulin glargine [Basaglar KwikPen U-100 Insulin] 100 unit/mL (3 mL) insulin pen 10 unit subcut BID Qty: 30 0RF Other Ambulatory Orders: Cardiac Holter Monitor, 24 Hrs (Routine) Timeframe: 2 Days Facility: [facility] - Location: Cardiovascular Services Ordered By: Dr. Wanda Bejarano Referrals / Follow Up: Care Physician,No Primary [Primary Care Provider] - Disposition Disposition (needs filled in before D/C Order can be placed): NonSkilled NH/Intermed Care Charges/Coding Visit Charges Inpatient E&M: 35629 Disch Hosp >30min
--- NOTE | 2023-12-15 14:01 | CASEMGMT ---
RIAZ called [facility] and arranged for patient to get picked up at 1600 via cot. SW faxed orders and belt picker time to [facility]. RIAZ notified RN and patient's niece per phone. Plan: d/c back to [facility] under intermediate level of care. Physicians will transport patient via cot.
--- NOTE | 2023-12-15 14:07 | PHA.DC_ITS ---
[facility]arm[facility] [place] [facility] Reconciliation [facility] has performed discharge medication reconciliation for this patient. The patient's discharge medication list was reviewed for discrepancies and discrepancies were resolved. Medications at Discharge Home Medications acetaminophen 325 mg tablet 650 mg PO Q8H PRN pain 12/13/23 acetic acid 0.25 % irrigation solution 30 ml irrigation QPM 12/13/23 apixaban 5 mg tablet (Eliquis) 5 mg PO BID blood thinner 12/13/23 atorvastatin 20 mg tablet 20 mg PO QHS cad 12/13/23 bisacodyl 10 mg rectal suppository (Dulcolax (bisacodyl)) 10 mg [place] DAILY PRN constipation 12/13/23 bisacodyl 5 mg tablet,delayed release (Dulcolax (bisacodyl)) 5 mg PO DAILY PRN constipation 12/13/23 cholecalciferol (vitamin D3) 125 mcg (5,000 unit) capsule 125 mcg PO MO suppliment 12/13/23 cyanocobalamin (vitamin B-12) 500 mcg tablet (B-12 DOTS) 500 mcg PO QPM suppliment 12/13/23 divalproex 500 mg tablet,delayed release 500 mg PO TID scitzophrenia 12/13/23 duloxetine 60 mg capsule,delayed release 60 mg PO DAILY depression 12/13/23 folic acid 1 mg tablet 1 mg PO DAILY suppliment 12/13/23 furosemide 20 mg tablet 20 mg PO DAILY diuretic 12/13/23 furosemide 40 mg tablet 40 mg PO DAILY diuretic 12/13/23 gabapentin 600 mg tablet 600 mg PO TID nerve pain 12/13/23 glucagon 1 mg solution for injection (GlucaGen HypoKit) 1 mg subcut DAILY 12/13/23 haloperidol 2 mg tablet 2 mg PO BID scitzophrenia 12/13/23 insulin lispro 100 unit/mL subcutaneous pen (Humalog KwikPen (U-100) Insulin) 1 sliding scale dose subcut TID diabetes 12/13/23 ketorolac 0.5 % eye drops 1 drp EACH EYE 4X/DAY RIGHT EYE SURGERY 12/13/23 levothyroxine 50 mcg tablet 50 mcg PO DAILY thyroid 12/13/23 lidocaine HCl 4 % topical cream (Aspercreme (lidocaine HCl)) 1 applic topical DAILY right knee pain 12/13/23 lisinopril 5 mg tablet 5 mg PO DAILY bp 12/13/23 loperamide 2 mg tablet 4 mg PO DAILY PRN loose stool 12/13/23 lorazepam 0.5 mg tablet 0.5 mg PO 1700 anxiety 12/13/23 lorazepam 1 mg tablet 1 mg PO TID anxiety 12/13/23 magnesium hydroxide 400 mg/5 mL oral suspension (Milk of Magnesia) 30 ml PO DAILY PRN constipation 12/13/23 melatonin 5 mg tablet 5 mg PO QHS sleep 12/13/23 morphine 30 mg tablet,extended release 30 mg PO BID pain 12/13/23 ofloxacin 0.3 % eye drops 1 drp ophthalmic (eye) 4X/DAY RIGHT EYE SURGERY 12/13/23 polyethylene glycol 3350 17 gram/dose oral powder (ClearLax) 17 g PO DAILY constipation 12/13/23 potassium chloride 20 mEq tablet,extended release 20 meq PO DAILY suppliment 12/13/23 sennosides 8.6 mg-docusate sodium 50 mg capsule (Senna Plus) 1 tab-cap PO BID 12/13/23 venlafaxine 150 mg capsule,extended release 24 hr 150 mg PO DAILY depression 0 12/13/23 venlafaxine 37.5 mg capsule,extended release 24 hr (Effexor XR) 37.5 mg PO DAILY depression 12/13/23 vit P-ccyjuhac-cjjvghzytpr lotion (Cetaphil Moisturizing lotion) 1 applic topical BID PRN dry skin 12/13/23 insulin glargine 100 unit/mL (3 mL) subcutaneous pen (Basaglar KwikPen U-100 Insulin) 10 unit (0.1 mL) subcut BID diabetes #30 mL 12/15/23 levofloxacin 750 mg tablet 750 mg PO DAILY 5 days #5 tabs 12/15/23
--- NOTE | 2023-12-15 15:15 | NURSING ---
Sara nurse at [facility], called report
== END 2023-12-15 16:17 | disposition intermediate care facility (04) | DRG 466 ==
LOC: ED 11:33 → PCU 12:44
PROVIDERS: Admitting Provider Internal Medicine; Emergency Provider Emergency Medicine; Visit Provider Internal Medicine
DX: T83.511A Infection and inflammatory reaction due to indwelling urethral catheter, initial encounter (principal); G93.41 Metabolic encephalopathy; E11.649 Type 2 diabetes mellitus with hypoglycemia without coma; L89.316 Pressure-induced deep tissue damage of right buttock; I44.1 Atrioventricular block, second degree; I11.0 Hypertensive heart disease with heart failure; I50.32 Chronic diastolic (congestive) heart failure; L89.326 Pressure-induced deep tissue damage of left buttock; J44.9 Chronic obstructive pulmonary disease, unspecified; F20.9 Schizophrenia, unspecified; Z79.4 Long term (current) use of insulin; E03.9 Hypothyroidism, unspecified; E78.5 Hyperlipidemia, unspecified; T23.001A Burn of unspecified degree of right hand, unspecified site, initial encounter; F41.9 Anxiety disorder, unspecified; R00.1 Bradycardia, unspecified; B96.5 Pseudomonas (aeruginosa) (mallei) (pseudomallei) as the cause of diseases classified elsewhere; G89.29 Other chronic pain; Z79.01 Long term (current) use of anticoagulants; Z79.891 Long term (current) use of opiate analgesic; Z79.890 Hormone replacement therapy; Z79.899 Other long term (current) drug therapy
CPT/HCPCS: 36415; 71045; 80048; 80053; 80164; 81001; 82140; 82962; 83036; 83605; 83735; 83880; 84439; 84443; 84484; 85025; 87040; 87077; 87086; 87088; 87184; 87186; 93005; 97162; 97166; 97530; 97802; 99285; J7030; A4216